=== PATIENT | female | born 1985 | race African-American/Black ===

== ENCOUNTER 2020-01-23 22:02 | Emergency (ER) | payer MEDICAID, OTHER ==
[~2020-01-23] VITALS: Ht 162.6 cm; Wt 70.8 kg
--- NOTE | 2020-01-23 22:09 | NUR ---
BIBS. RUQ ABD PAIN SINCE YESTERDAY. HEADACHE X 3 DAYS. VAGINAL SPOTTING TODAY. 11 WEEKS 1,0,0,0,0; PT TO BED 7, PT AAOX4, -SOB, NAD NOTED, VSS, PENDING MD GARZA
[2020-01-23] MEDS ORDERED: ACETAMINOPHEN ES 500 MG TABLET PO ONE (22:30)
[2020-01-23 22:42] LABS: BASOPHILS # (AUTO) 0.1 /CMM (0.0-0.2); BASOPHILS % (AUTO) 0.7 % (0.0-2.0); EOSINOPHILS % (AUTO) 2.2 % (0.0-6.0); HEMATOCRIT 38 % (33-45); HEMOGLOBIN 12.7 g/dL (11.5-14.8); LYMPHOCYTES # (AUTO) 3.3 /CMM (0.8-4.8); LYMPHOCYTES % (AUTO) 30.2 % (20.0-44.0); MEAN CORPUSCULAR HGB CONC 33 g/dl (31.0-36.0); MEAN CORPUSCULAR VOLUME 88 fL (82-100); MONOCYTES # (AUTO) 0.9 /CMM (0.1-1.30); MONOCYTES % (AUTO) 7.9 % (2.0-12.0); NEUTROPHILS # (AUTO) 6.5 /CMM (1.8-8.9); PLATELET COUNT (AUTO) 243 /CMM (150-450); RED BLOOD CELL COUNT(AUTO) 4.33 MIL/uL (4.0-5.2); WHITE BLOOD COUNT (AUTO) 11.1 K/uL (4.3-11.0)
[2020-01-23 22:49] LABS: CALCIUM, SERUM 8.7 mg/dL (8.5-10.1); CREATININE 0.7 mg/dL (0.6-1.3); POTASSIUM 3.7 mmol/L (3.5-5.1)
[2020-01-23] MEDS ORDERED: ACETAMINOPHEN ES 500 MG TABLET ONE (22:51)
[2020-01-23 23:12] LABS: APPEARANCE,URINE Clear (CLEAR); BILIRUBIN,URINE Negative (NEGATIVE); BLOOD, URINE Negative Ery/uL (NEGATIVE); COLOR,URINE Yellow (YELLOW); KETONES,URINE Negative (NEGATIVE); LEUKOCYTE ESTERASE ,URINE Negative (NEGATIVE); NITRITE, URINE Negative (NEGATIVE); PROTEIN,URINE Negative (NEGATIVE); UGLUCOSE Negative (NEGATIVE); UROBILINOGEN,URINE 0.2 EU/dL (0.2)
--- NOTE | 2020-01-24 00:02 | NUR ---
SMOOTH BENITEZ AT BEDSIDE
--- NOTE | 2020-01-24 01:34 | NUR ---
CALLED JAN FOR REPORT
--- NOTE | 2020-01-24 02:04 | NUR ---
FOLLOWED UP WITH JAN FOR ULTRASOUND RESULT. SPOKE WITH JAN
--- NOTE | 2020-01-24 02:46 | NUR ---
Patient does not wish to proceed with medical care recommended by Dr. MAYEN. Patient given information related to possible complications, up to and including , which could occur as a result of leaving the hospital at this time. Patient verbalizes understanding of risks involved due to leaving against medical advice.
[2020-01-24 05:30] VITALS: BP 122/78
== END 2020-01-24 03:00 | disposition home or self-care (01) ==
LOC: ER 22:07
DX: O20.0 Threatened abortion (principal); Z3A.09 9 weeks gestation of pregnancy
CPT/HCPCS: 36415; 76856-TC; 80048-TC; 81000-TC; 84702-TC; 85025-TC; 86850-TC